=== PATIENT | male | born 1975 | race Two or more races ===

== ENCOUNTER 2018-02-18 17:30 | Emergency (ER) | payer SELFPAY ==
[~2018-02-18] VITALS: Ht 170.2 cm; Wt 74.8 kg
[2018-02-18 17:39] VITALS: BP 143/59
[2018-02-18] MEDS ORDERED: KETOROLAC TROMETHAMINE INJ 30 MG/ML VIAL ONE (18:03)
[2018-02-18] MEDS ORDERED: KETOROLAC TROMETHAMINE INJ 30 MG/ML VIAL IM ONE (18:30)
== END 2018-02-18 18:15 | disposition home or self-care (01) ==
LOC: ER 17:34
DX: M79.10 Myalgia, unspecified site (principal); F10.10 Alcohol abuse, uncomplicated; F17.200 Nicotine dependence, unspecified, uncomplicated; Y90.9 Presence of alcohol in blood, level not specified
CPT/HCPCS: A4606; J1885; Z7610

== ENCOUNTER 2023-03-29 21:23 | Emergency (ER) | payer MEDICAID ==
[~2023-03-29] VITALS: Ht 170.2 cm; Wt 81.6 kg
[2023-03-29] MEDS ORDERED: IBUPROFEN 400 MG TABLET ONE (22:23)
[2023-03-29] MEDS ORDERED: IBUPROFEN 400 MG TABLET PO ONE (22:30)
[2023-03-30 00:41] VITALS: BP 134/85; TEMP 98; O2SAT 98
== END 2023-03-30 00:41 | disposition home or self-care (01) ==
LOC: ER 21:28
DX: J06.9 Acute upper respiratory infection, unspecified (principal); F17.200 Nicotine dependence, unspecified, uncomplicated; Z20.822 Contact with and (suspected) exposure to COVID-19
CPT/HCPCS: 71045-TC

== ENCOUNTER 2024-04-06 19:14 | Emergency (ER) | payer SELFPAY ==
[~2024-04-06] VITALS: Ht 170.2 cm; Wt 77.1 kg
[2024-04-06] MEDS ORDERED: NITROGLYCERIN 0.4 MG/TAB BOTTLE ONE (19:42)
[2024-04-06] MEDS ORDERED: ASPIRIN 325 MG TABLET ONE (19:42)
[2024-04-06] MEDS ORDERED: ASPIRIN 81 MG TAB.CHEW ONE ×2 (19:42→19:44)
[2024-04-06] MEDS: ASPIRIN 81 MG TAB.CHEW PO ONE (19:44)
[2024-04-06] MEDS: NITROGLYCERIN 0.4 MG/TAB BOTTLE SL ONE (19:45)
[2024-04-06 19:49] LABS: BASOPHILS # (AUTO) 0.2 K/uL (0.0-0.2); EOSINOPHILS # (AUTO) 0.1 K/uL (0.0-0.7); EOSINOPHILS % (AUTO) 0.4 % (0.0-6.0); HEMATOCRIT 44 % (39-51); HEMOGLOBIN 15.5 g/dL (13.5-17.5); LYMPHOCYTES # (AUTO) 2.9 K/uL (0.8-4.8); LYMPHOCYTES % (AUTO) 14.2 % (20.0-44.0); MEAN CORPUSCULAR HEMOGLOBIN 34 PG (26.0-33.0); MEAN CORPUSCULAR HGB CONC 35 g/dl (31.0-36.0); MEAN CORPUSCULAR VOLUME 96 fL (80-96); MONOCYTES # (AUTO) 2.3 K/uL (0.1-1.30); MONOCYTES % (AUTO) 11.2 % (2.0-12.0); NEUTROPHILS # (AUTO) 14.9 K/uL (1.8-8.9); NEUTROPHILS % (AUTO) 73.2 % (43.0-81.0); PLATELET COUNT (AUTO) 400 K/uL (150-450); RED BLOOD CELL COUNT(AUTO) 4.56 MIL/uL (4.5-6.0); RED CELL DISTRIBUTION WIDTH 13.4 % (11.5-15.0); WHITE BLOOD COUNT (AUTO) 20.3 K/uL (4.3-11.0)
[2024-04-06 19:59] LABS: CALCIUM, SERUM 9.1 mg/dL (8.5-10.1); CARBON DIOXIDE 25 mmol/L (21-32); CHLORIDE 104 mmol/L (98-107); CREATININE 0.9 mg/dL (0.6-1.3); GLUCOSE 113 mg/dL (74-106); POTASSIUM 3.7 mmol/L (3.5-5.1); SODIUM SERUM 138 mmol/L (136-145); UREA NITROGEN, BLOOD 9 mg/dL (7-18)
[2024-04-06 20:11] LABS: ALANINE AMINOTRANSFERASE 33 U/L (12-78); ALBUMIN 4.1 g/dL (3.4-5.0); ALKALINE PHOSPHATASE 71 U/L (46-116); ASPARTATE AMINOTRANSFERASE 21 U/L (15-37); BILIRUBIN,DIRECT 0.1 mg/dL (0.0-0.2); BILIRUBIN,TOTAL 0.5 mg/dL (0.2-1.0); NT-PRO BNP 33 pg/mL (0-125); TOTAL PROTEIN, SERUM 7.3 g/dL (6.4-8.2)
[2024-04-06] MEDS ORDERED: MORPHINE SULFATE INJ 4 MG/ML DISP.SYRIN ONE (20:11)
[2024-04-06] MEDS ORDERED: ONDANSETRON HCL/PF 4 MG/2 ML VIAL ONE (20:11)
[2024-04-06] MEDS: ONDANSETRON HCL/PF 4 MG/2 ML VIAL IV ONE (20:12)
[2024-04-06] MEDS: MORPHINE SULFATE INJ 2 MG/ML DISP.SYRIN IV ONE (20:12)
[2024-04-06] MEDS ORDERED: MAG HYDROX/AL HYDROX/SIMETH 30 ML UDC ONE (21:04)
[2024-04-06] MEDS: MAG HYDROX/AL HYDROX/SIMETH 30 ML UDC PO ONE (21:05)
[2024-04-06] MEDS: FAMOTIDINE/PF INJ 20 MG/2 ML VIAL IV ONE (21:05)
[2024-04-06] MEDS ORDERED: FAMOTIDINE/PF INJ 20 MG/2 ML VIAL IV ONE (21:05)
[2024-04-06 21:38] LABS: ANISOCYTOSIS 1+; BAND % (MANUAL) 2 % (0.0-5.0); LYMPHOCYTES % (MANUAL) 11 % (16-48); METAMYELOCYTES % 1 % (0-0); MONOCYTES % (MANUAL) 10 % (0-11.0); NEUTROPHILS % (MANUAL) 76 (42-76); PLATELET ESTIMATE ADEQUATE
[2024-04-06] MEDS ORDERED: MAGNESIUM HYDROXIDE 30 ML UDC PO PRN (23:30)
[2024-04-06] MEDS ORDERED: CEFTRIAXONE 1 G in IV D5W 50 ML IV SCH (23:30)
[2024-04-06] MEDS ORDERED: MORPHINE SULFATE INJ 2 MG/ML DISP.SYRIN IV PRN (23:30)
[2024-04-06] MEDS ORDERED: ONDANSETRON HCL/PF 4 MG/2 ML VIAL IVP PRN (23:30)
[2024-04-06] MEDS ORDERED: NITROGLYCERIN PACKET 1 GM PACKET TOP SCH (23:30)
[2024-04-06] MEDS ORDERED: ACETAMINOPHEN 325 MG TABLET PO PRN (23:30)
[2024-04-06] MEDS ORDERED: Z GUARD REMEDY 4 OZ OINT TP PRN (23:30)
[2024-04-06] MEDS ORDERED: ATORVASTATIN 40 MG TABLET PO SCH (23:30)
[2024-04-06] MEDS ORDERED: METOPROLOL TARTRATE 25 MG TABLET PO SCH (23:30)
[2024-04-07 03:05] VITALS: BP 145/88; TEMP 99.1; O2SAT 98
[2024-04-07] MEDS ORDERED: PANTOPRAZOLE 40 MG TABLET.DR PO SCH (07:30)
[2024-04-07] MEDS ORDERED: ASPIRIN EC 81 MG TABLET.DR PO SCH (09:00)
[2024-04-07] MEDS ORDERED: NICOTINE PATCH (21MG) 21 MG PATCH.TD24 TD SCH (09:00)
== END 2024-04-07 03:05 | disposition left against medical advice (07) ==
LOC: ER 19:16
DX: R07.9 Chest pain, unspecified (principal); R06.02 Shortness of breath; F17.200 Nicotine dependence, unspecified, uncomplicated; Z90.81 Acquired absence of spleen
CPT/HCPCS: 99285; 96374; 96375; 71045; 93005 ×2; 36410; 73030; 84145; 85025; 80048; 87040 ×2; 83605; 80076; 85378; 36415; 84484 ×2; 83880; 85007; J2270; J3490; J2405; J0696; J7060

== ENCOUNTER 2024-12-07 23:36 | Emergency (ER) | payer SELFPAY ==
[~2024-12-07] VITALS: Ht 170.2 cm; Wt 77.1 kg
[2024-12-08] MEDS ORDERED: ONDANSETRON HCL/PF 4 MG/2 ML VIAL ONE (00:32)
[2024-12-08] MEDS ORDERED: MORPHINE SULFATE INJ 4 MG/ML DISP.SYRIN ONE (00:33)
[2024-12-08 00:45] LABS: PLATELET COUNT (AUTO) 413 K/uL (150-450); RED BLOOD CELL COUNT(AUTO) 4.82 MIL/uL (4.5-6.0); RED CELL DISTRIBUTION WIDTH 13.5 % (11.5-15.0); WHITE BLOOD COUNT (AUTO) 16.8 K/uL (4.3-11.0)
[2024-12-08] MEDS: MORPHINE SULFATE INJ 2 MG/ML DISP.SYRIN IV ONE (00:45)
[2024-12-08] MEDS: ONDANSETRON HCL/PF - ER 4 MG/2 ML VIAL IV ONE (00:45)
[2024-12-08] MEDS ORDERED: CT SWABBABLE VALVE TRANS SET 1 EA INFUS.SET MC ONE (00:52)
[2024-12-08] MEDS ORDERED: IV NS 0.9% 250 ML IV ONE (00:52)
[2024-12-08] MEDS ORDERED: IOHEXOL-350 100 ML VIAL IV ONE (00:52)
[2024-12-08 01:01] LABS: CALCIUM, SERUM 8.9 mg/dL (8.5-10.1); CREATININE 1.1 mg/dL (0.6-1.3); SODIUM SERUM 142.0 mmol/L (136-145); UREA NITROGEN, BLOOD 18.0 mg/dL (7-18)
[2024-12-08 01:25] LABS: ASPARTATE AMINOTRANSFERASE 21.0 U/L (15-37); NT-PRO BNP 10.0 pg/mL (0-125); TOTAL PROTEIN, SERUM 7.2 g/dL (6.4-8.2)
[2024-12-08 02:04] LABS: APPEARANCE,URINE CLEAR (CLEAR); BLOOD, URINE TRACE-INTA Ery/uL (NEGATIVE); LEUKOCYTE ESTERASE ,URINE NEGATIVE (NEGATIVE); NITRITE, URINE NEGATIVE (NEGATIVE); UGLUCOSE NEGATIVE (NEGATIVE)
[2024-12-08 02:12] LABS: ADD URINE CULTURE NO; SQUAMOUS EPITHELIAL CELL,UR Rare /HPF (None Seen)
[2024-12-08] MEDS ORDERED: KETO10TA2 PO (02:13)
[2024-12-08 02:22] LABS: AMPHETAMINE, URINE NEGATIVE (NEGATIVE); BARBITURATE, URINE NEGATIVE (NEGATIVE); BENZODIAZEPINE, URINE NEGATIVE (NEGATIVE); CANNABINOID, URINE NEGATIVE (NEGATIVE); COCCAINE, URINE NEGATIVE (NEGATIVE); OPIATE, URINE NEGATIVE (NEGATIVE)
[2024-12-08 02:55] VITALS: BP 130/65; TEMP 98; O2SAT 95
== END 2024-12-08 02:56 | disposition home or self-care (01) ==
LOC: ER 23:38
DX: R10.9 Unspecified abdominal pain (principal); R11.10 Vomiting, unspecified; F17.200 Nicotine dependence, unspecified, uncomplicated; R06.02 Shortness of breath; Z79.899 Other long term (current) drug therapy
CPT/HCPCS: 99285; 71275; 96374; 71045; 96375; 93005; 74176; 85025; 83690; 81001; 36415; 80053; 84484; 83880; 80307; J2270; J2405 ×2; J7050; Q9967